=== PATIENT | female | born 1970 | race Asian ===

== ENCOUNTER 2018-06-25 20:17 | Inpatient (IN) | payer OTHER ==
[~2018-06-25] VITALS: Ht 160 cm; Wt 52.3 kg
[2018-06-25] MEDS ORDERED: METO25 PO (20:31)
[2018-06-25 21:02] LABS: BASOPHILS % (AUTO) 1.3 % (0.0-2.0); EOSINOPHILS % (AUTO) 5.5 % (1.0-6.0); HEMATOCRIT 35.6 % (36-46); LYMPHOCYTES # (AUTO) 2.5 K/uL (1.0-4.8); LYMPHOCYTES % (AUTO) 22.7 % (22.0-44.0); MEAN CORPUSCULAR HEMOGLOBIN 32.7 pg (26.0-34.0); MEAN CORPUSCULAR HGB CONC 33.6 G/dL (31.0-37.0); MEAN CORPUSCULAR VOLUME 97 fL (80-100); MONOCYTES # (AUTO) 0.7 K/uL (0.1-1.0); MONOCYTES % (AUTO) 6.1 % (2.0-9.0); NEUTROPHILS # (AUTO) 7.1 K/uL (1.8-7.7); NEUTROPHILS % (AUTO) 64.4 % (40.0-70.0); PLATELET COUNT (AUTO) 321 K/uL (150-450); RED BLOOD CELL COUNT(AUTO) 3.67 MIL/uL (4.00-5.20); RED CELL DISTRIBUTION WIDTH 13.2 % (11.5-14.5)
[2018-06-25 21:12] LABS: CALCIUM, TOTAL 8.9 mg/dL (8.8-10.5); CREATININE 1.3 mg/dL (0.60-1.30); POTASSIUM 3.7 mmol/L (3.5-5.1)
[2018-06-25 21:18] LABS: BILIRUBIN,TOTAL 0.3 mg/dL (0.1-1.0); TOTAL PROTEIN, SERUM 7.5 g/dL (6.4-8.2)
[2018-06-25 21:32] LABS: AMPHET/METH SCREEN,URINE NEGATIVE (NEGATIVE); BARBITURATE SCREEN, URINE NEGATIVE (NEGATIVE); BENZODIAZEPINES SCREEN,URINE NEGATIVE (NEGATIVE); CANNABINOID SCREEN,URINE NEGATIVE (NEGATIVE); COCAINE SCREEN,URINE NEGATIVE (NEGATIVE); METHADONE SCREEN, URINE NEGATIVE (NEGATIVE); OPIATE SCREEN,URINE NEGATIVE (NEGATIVE)
[2018-06-25 21:36] LABS: PHENCYCLIDINE SCREEN,URINE NEGATIVE (NEGATIVE)
[2018-06-25] MEDS ORDERED: ZOLPIDEM TARTRATE 10 MG TABLET PO PRN (23:30)
[2018-06-25] MEDS ORDERED: LORazepam 2 MG TABLET PO PRN (23:30)
[2018-06-25] MEDS ORDERED: HALOPERIDOL 5 MG TABLET PO PRN (23:30)
[2018-06-25] MEDS ORDERED: DiphenhydrAMINE HCL 50 MG/ML VIAL IM ONE (23:45)
[2018-06-25] MEDS ORDERED: LORazepam 2 MG/ML VIAL IM ONE (23:45)
[2018-06-25] MEDS ORDERED: HALOPERIDOL LACTATE 5 MG/ML VIAL IM ONE (23:45)
[2018-06-26] VITALS (8 sets, daily range): BP systolic 112–117; BP diastolic 65–74
[2018-06-26] MEDS ORDERED: PETROLATUM,WHITE 71 GM JELLY TP PRN (07:30)
[2018-06-26] MEDS ORDERED: CloNIDine HCL 0.1 MG TABLET PO PRN (07:30)
[2018-06-26] MEDS ORDERED: ALBUTEROL SULFATE HFA 90 MCG/PUFF 8 GM INHALER IH PRN (07:30)
[2018-06-26] MEDS ORDERED: MAGNESIUM HYDROXIDE SUSPENSION 30 ML UDCUP PO PRN (07:30)
[2018-06-26] MEDS ORDERED: DOCUSATE SODIUM 100 MG CAPSULE PO PRN (07:30)
[2018-06-26] MEDS ORDERED: MAG HYDROX/AL HYDROX/SIMETH ES 30 ML SUSPENSION UDCUP PO PRN (07:30)
[2018-06-26] MEDS ORDERED: ACETAMINOPHEN 325 MG TABLET PO PRN (07:30)
[2018-06-26] MEDS ORDERED: GuaiFENesin/D-METHORPHAN [SUGAR-FREE] 200-20MG/10 ML SYRUP UDCUP PO PRN (07:30)
[2018-06-26] MEDS ORDERED: LOPERAMIDE HCL 2 MG CAPSULE PO PRN (07:30)
[2018-06-26] MEDS ORDERED: IBUPROFEN 400 MG TABLET PO PRN (07:30)
[2018-06-26] MEDS ORDERED: ONDANSETRON HCL 4 MG TABLET PO PRN (07:30)
[2018-06-26 07:49] LABS: HEMOGLOBIN A1C 4.6 % (4.5-6.2)
[2018-06-26 08:04] LABS: CHOL/HDL RATIO 2.9 (3.9-5.7); FREE T4 (FREE THYROXINE) 0.74 ng/dL (0.76-1.46); THYROID STIMULATING HORMONE 5.69 uIU/mL (0.36-3.74)
[2018-06-26] MEDS ORDERED: PNEUMOCOCCAL VACCINE POLYVALENT 0.5 ML VIAL [PPSV23] IM ONE (13:15)
[2018-06-26] MEDS: ESCITALOPRAM OXALATE 10 MG TABLET PO SCH (15:17)
[2018-06-26] MEDS: NICOTINE 14 MG/24 HOUR PATCH TD PRN (17:37)
[2018-06-27 05:53] VITALS: BP 129/80
[2018-06-27 05:55] VITALS: BP 129/80
[2018-06-27] MEDS: LEVOTHYROXINE SODIUM 50 MCG TABLET PO SCH (06:40)
[2018-06-27 08:13] VITALS: BP 126/92
[2018-06-27] MEDS: ESCITALOPRAM OXALATE 10 MG TABLET PO SCH (08:51)
[2018-06-27 16:00] VITALS: BP 131/93
[2018-06-27 16:32] VITALS: BP 131/93
[2018-06-27 16:43] VITALS: BP 131/93
[2018-06-28 06:36] VITALS: BP 118/80
[2018-06-28] MEDS: LEVOTHYROXINE SODIUM 50 MCG TABLET PO SCH (07:12)
[2018-06-28 08:08] VITALS: BP 117/71
[2018-06-28] MEDS: ESCITALOPRAM OXALATE 10 MG TABLET PO SCH (09:14)
[2018-06-28] MEDS ORDERED: ESCI10TA54 PO (09:18)
[2018-06-28] MEDS ORDERED: ESCI10TA PO (09:55)
[2018-06-28] MEDS: NICOTINE 14 MG/24 HOUR PATCH TD PRN (10:22)
[2018-06-28] MEDS ORDERED: LEVO50 PO (12:24)
== END 2018-06-28 13:57 | disposition home or self-care (01) | DRG 885 ==
LOC: EMS 20:17 → B3A 23:30
DX: F33.2 Major depressive disorder, recurrent severe without psychotic features (principal); E03.9 Hypothyroidism, unspecified; E78.5 Hyperlipidemia, unspecified; F10.20 Alcohol dependence, uncomplicated; Y90.9 Presence of alcohol in blood, level not specified; F15.90 Other stimulant use, unspecified, uncomplicated; F17.210 Nicotine dependence, cigarettes, uncomplicated; I12.9 Hypertensive chronic kidney disease with stage 1 through stage 4 chronic kidney disease, or unspecified chronic kidney disease; N18.3 Chronic kidney disease, stage 3 (moderate); Z78.1 Physical restraint status; Z79.899 Other long term (current) drug therapy; Z91.5 Personal history of self-harm; M32.9 Systemic lupus erythematosus, unspecified
CPT/HCPCS: 83036; 84439; 84443; 96372; G0480; J1200; J1630; J2060